=== PATIENT | female | born 1975 | race Caucasian/White ===

== ENCOUNTER 2021-09-19 15:05 | Outpatient (CLI) | payer BC | END 2021-09-19 15:06 | disposition home or self-care (01) | LOC: CSHMAMMO 15:05 | PROVIDERS: ATTEND Plastic Surgery | DX: Z12.31 Encounter for screening mammogram for malignant neoplasm of breast (principal); Z98.82 Breast implant status | CPT/HCPCS: 77063; 77067 ==